=== PATIENT | male | born 1940 | race Hispanic/Latino ===

== ENCOUNTER 2017-06-25 21:13 | Emergency (ER) | payer MEDICARE ==
[2017-06-25] MEDS ORDERED: IPRATROPIUM/ALBUTEROL SULFATE 3 ML SOLUTION IH ONE (21:34)
[2017-06-25 21:39] LABS: BASOPHILS % (AUTO) 0.2 % (0.0-5.0); EOSINOPHILS % (AUTO) 0.4 % (0.0-8.0); HEMATOCRIT 35.7 % (42-54); LYMPHOCYTES % (AUTO) 12.2 % (21.0-51.0); MEAN CORPUSCULAR HEMOGLOBIN 30.1 pg (27.0-33.0); MEAN CORPUSCULAR VOLUME 88.4 fL (79-99); NEUTROPHILS % (AUTO) 78.2 % (40.0-77.0); PLATELET COUNT (AUTO) 158 K/uL (130-400); RED BLOOD CELL COUNT(AUTO) 4.03 MIL/uL (4.50-6.20); RED CELL DISTRIBUTION WIDTH 13.1 % (11.0-15.5); WHITE BLOOD COUNT (AUTO) 11.8 K/uL (4.8-10.8)
[2017-06-25] MEDS ORDERED: CEFTRIAXONE SODIUM 2 GM VIAL ONE (21:46)
[2017-06-25] MEDS ORDERED: ACETAMINOPHEN EXTRA STRENGTH 500 MG TABLET ONE (21:47)
[2017-06-25] MEDS ORDERED: WATER FOR INJECTION,STERILE 20 ML VIAL ONE (21:47)
[2017-06-25 21:55] LABS: CREATININE 1.6 mg/dL (0.5-1.5); POTASSIUM 3.7 mmol/L (3.5-5.1)
[2017-06-25 21:58] LABS: INR 0.96 (0.85-1.15); PARTIAL THROMBOPLASTIN TIME 32.3 SEC (26.3-35.5); PROTHROMBIN TIME 10.1 SEC (9.6-11.6)
[2017-06-25] MEDS ORDERED: OSELTAMIVIR PHOSPHATE 75 MG CAP ONE (22:07)
[2017-06-25 22:11] LABS: ALBUMIN 3.3 g/dL (3.5-5.0); BILIRUBIN,TOTAL 0.9 mg/dL (0.2-1.0); CREATINE KINASE MB 2.4 ng/mL (0.5-3.6); TOTAL PROTEIN, SERUM 7.4 g/dL (6.0-8.3); TROPONIN I 0.08 ng/mL (0.00-0.06)
[2017-06-25] MEDS ORDERED: BENZONATATE 100 MG CAPSULE PO ONE (23:34)
[2017-06-25] MEDS ORDERED: IPRATROPIUM 0.5 MG/2.5 ML INH IH ONE (23:38)
== END 2017-06-26 00:34 | disposition home or self-care (01) ==
LOC: EDH 21:13
DX: J10.1 Influenza due to other identified influenza virus with other respiratory manifestations (principal); E11.9 Type 2 diabetes mellitus without complications; E78.5 Hyperlipidemia, unspecified; R79.1 Abnormal coagulation profile; Z95.0 Presence of cardiac pacemaker
CPT/HCPCS: 36415; 71045; 80053; 82550; 82553; 83605; 83874; 84484; 85025; 85610; 85730; 87040 ×2; 87804 ×2; 93005; 94640 ×2; 94761; 96361; 96374; 99285; J0696